=== PATIENT | male | born 1955 | race Caucasian/White ===

== ENCOUNTER 2016-12-31 11:53 | Emergency (ER) | payer BC ==
[~2016-12-31] VITALS: Ht 180.3 cm; Wt 142.3 kg
[2016-12-31 11:56] VITALS: BP 148/67; PULSE 71; TEMP 98.1
[2016-12-31] MEDS ORDERED: ASPIRIN 32325 MG/TAB PO (12:24)
[2016-12-31] MEDS ORDERED: LIPITOR 80MG80 MG PO (12:25)
[2016-12-31] MEDS ORDERED: LASIX 20MG TABL20 MG PO ×2 (12:25→12:26)
[2016-12-31] MEDS ORDERED: GLUCOTROL10 MG PO (12:26)
[2016-12-31] MEDS ORDERED: LOPID 600M600 MG/TAB PO (12:26)
[2016-12-31] MEDS ORDERED: LEVEMIR FLEX100 U/ML SQ (12:27)
[2016-12-31] MEDS ORDERED: GLUCAGON EMERGEN1 M1 SQ (12:27)
[2016-12-31] MEDS ORDERED: NORVASC 5MG5 MG/TAB PO (12:28)
[2016-12-31] MEDS ORDERED: GLUCOPHAGE1000 MG PO (12:28)
[2016-12-31] MEDS ORDERED: KLOR-CON SPRIN10 MEQ PO (12:29)
[2016-12-31] MEDS ORDERED: DIOVAN 80MG80 MG PO (12:29)
[2016-12-31] MEDS ORDERED: OMEGA-3 1000 MG1 CAP PO (12:30)
[2016-12-31] MEDS ORDERED: B-12 100 MCG PO (12:30)
[2016-12-31] MEDS ORDERED: VITAMIN C500 MG PO (12:30)
[2016-12-31 13:12] LABS: MEAN CELL VOLUME 87 fl (80.0-100.0); MEAN CORPUSCULAR HGB CONC 33 g/dl (33.0-37.0); MEAN PLATELET VOLUME 9.7 fl (7.4-10.4); PLATELET COUNT 483 K/mm3 (130-400); RED BLOOD COUNT 3.93 M/mm3 (4.20-5.60); REDCELL DISTRIBUTION WIDTH-CV 13.6 % (11.5-14.5); WHITE BLOOD COUNT 9.1 K/mm3 (4.8-10.8)
[2016-12-31 13:13] LABS: ADJUSTED CALCIUM 9.5 mg/dL (8.4-10.2); ALANINE AMINOTRANSFERASE 32 U/L (21-72); ALBUMIN 3.2 gm/dL (3.5-5.0); ALKALINE PHOSPHATASE 180 U/L (50-136); ANION GAP 12 mmol/L (7-16); BILIRUBIN,TOTAL 0.3 mg/dL (0.0-1.0); BLOOD UREA NITROGEN 58 mg/dL (9-20); CALCIUM 8.9 mg/dL (8.4-10.2); CARBON DIOXIDE 21 mmol/L (22-30); CHLORIDE 111 mmol/L (98-107); CREATININE, serum 1.69 mg/dL (0.66-1.25); GLUCOSE 245 mg/dL (74-106); POTASSIUM 4.7 mmol/L (3.4-5.0); SODIUM 144 mmol/L (137-145); TOTAL PROTEIN 7.2 gm/dL (6.4-8.2)
[2016-12-31 13:16] LABS: HEMATOCRIT 34.1 % (42.0-52.0); HEMOGLOBIN 11.4 g/dl (13.5-18.0); MEAN CORPUSCULAR HEMOGLOBIN 29 pg (27.0-31.0)
[2016-12-31 13:17] LABS: ADD PATHOLOGY DIFF REVIEW NO
[2016-12-31 14:06] LABS: BAND 8 % (0-10); MYELOCYTE 1 % (0-0); NEUTROPHILS 74 % (42.0-75.2); PLATELET ESTIMATE INCREASED (NORMAL); TOTAL CELLS COUNTED 100
[2016-12-31] MEDS ORDERED: PEN-VEE K500 MG PO (14:17)
== END 2016-12-31 15:00 | disposition home or self-care (01) ==
LOC: COL.ER 11:53
PROVIDERS: Physician Assistant Medical
DX: L03.116 Cellulitis of left lower limb (principal); I10 Essential (primary) hypertension; E11.9 Type 2 diabetes mellitus without complications; E78.5 Hyperlipidemia, unspecified; Z79.4 Long term (current) use of insulin; Z79.84 Long term (current) use of oral hypoglycemic drugs; Z79.82 Long term (current) use of aspirin; Z86.73 Personal history of transient ischemic attack (TIA), and cerebral infarction without residual deficits; Z87.442 Personal history of urinary calculi
CPT/HCPCS: J7030